=== PATIENT | female | born 1955 | race Caucasian/White ===

== ENCOUNTER 2016-08-18 07:27 | Emergency (ER) | payer MEDICAID ==
[~2016-08-18] VITALS: Ht 157.5 cm; Wt 78.0 kg
[~2016-08-18 07:27] MED LIST: ASPI-664 PO; ASPI1TAB21 PO; AUG875 PO; GABA100C PO; METO25TA4 PO; TRAZ50TA18 PO
[2016-08-18 07:31] VITALS: Ht 157.5 cm; Wt 78.0 kg
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
[2016-08-18] MEDS ORDERED: HYDROCODONE/APAP (5/325) TAB PO ONE (08:00)
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
[2016-08-18] MEDS ORDERED: NAPR-260 PO (09:10)
[2016-08-18] MEDS ORDERED: TRAM50TA2 PO (09:10)
[2016-08-18] MEDS ORDERED: ACET500C5 PO (09:11)
== END 2016-08-18 10:17 | disposition home or self-care (01) ==
LOC: FTE 07:27
DX: S52.501A Unspecified fracture of the lower end of right radius, initial encounter for closed fracture (principal); I10 Essential (primary) hypertension; V29.88XA Motorcycle rider (driver) (passenger) injured in other specified transport accidents, initial encounter; Z79.82 Long term (current) use of aspirin; Z87.891 Personal history of nicotine dependence
CPT/HCPCS: 29125; 73090; 73110; 73130; Z7502; Z7610